=== PATIENT | female | born 2000 | race Caucasian/White ===

== ENCOUNTER 2022-04-03 21:23 | Emergency (ER) | payer OTHER ==
[2022-04-03 21:35] VITALS: BP 126/71
[2022-04-03] MEDS ORDERED: ONDANSETRON ODT 4 MG Prepack 2 TL PRN (21:57)
--- NOTE | 2022-04-03 22:00 | ED Physician Documentation ---
History of Present Illness - Stated complaint Stated Complaint: NAUSEA/HEADACHE - Chief complaint Chief Complaint: Abd Pain - Additonal information Additional information: Patient is 21-year-old female presenting to the emergency department with complaint of headache, nausea, vomiting, dizziness. Reports symptoms were ongoing for the last 5 days. Was seen yesterday at urgent care, reports at that time had negative urine screening, negative urine test, negative COVID and influenza tests. Was given Toradol and Zofran. Reports was feeling unwell until today when she was able to tolerate p.o. intake including Gatorade and so me solid food. States that she currently feels significantly better. Denies for any head trauma, fever, chills, chest pain, shortness of breath, cough, abdominal pain. Does report dizziness which she describes as a spinning sensation which is made worse by the position of her head or eyes. Reports that this symptom is also improved but not completely alleviated. Denies any tinnitus, or hearing loss or muffled hearing. Review of Systems Ten Systems: 10 systems reviewed and negative Constitutional: denies: Fever, Chills Eyes: denies: Loss of vision, Decreased vision Ears: denies: Loss of hearing, Ear pain, Tinnitus/ringing, Foreign body Nose: denies: Rhinorrhea / runny nose Throat: denies: Dental pain / toothache Cardiac: denies: Chest pain / pressure Respiratory: denies: Dyspnea GI: reports: Nausea, Vomiting. denies: Abdominal Pain : denies: Dysuria Skin: denies: Rash Musculoskeletal: denies: Neck pain Neurologic: reports: Other (Positive vertigo) PD PAST MEDICAL HISTORY - Present Medications Home Medications: Ambulatory Orders Medication Instructions Recorded Confirmed Meclizine [Antivert] 12.5 mg PO Q6H #30 tablet 04/03/22 Ondansetron Odt [Zofran] 4 mg TL Q6H PRN #10 tablet 04/03/22 - Allergies Allergies/Adverse Reactions: Allergies Allergy/AdvReac Type Severity Reaction Status Date / Time No Known Drug Allergies Allergy Verified 04/03/22 21:35 PD ED PE NORMAL - Vitals Vital signs reviewed: Yes - General General: Alert and oriented X 3, No acute distress, Well developed/nourished, Other - HEENT HEENT: Atraumatic, PERRL, EOMI, Ears normal, Moist mucous membranes, Pharynx benign, Dentition benign - Neck Neck: Supple, no meningeal sign, No bony TTP, No adenopathy - Cardiac Cardiac: RRR, No murmur, No gallop - Respiratory Respiratory: No respiratory distress, Clear bilaterally - Female Female : Deferred - Rectal Rectal: Deferred - Back Back: No CVA TTP - Derm Derm: Normal color - Neuro Neuro: Alert and oriented X 3, 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 There was also report of vertigo without tinnitus or hearing loss. Afebrile, hemodynamically stable on arrival to the emergency department. Reported that all of her symptoms are largely improved at this time. Did report that she had COVID, influenza screening as well as urine analysis and a negative test that were performed yesterday. At this time I will provide her with a short course of Zofran and meclizine. Encourage careful follow-up with primary care and or return to the emergency department for new or worsening symptoms. Final clinical impression, headache, nausea and vomiting, vertigo. Departure - Departure Disposition: 01 Home, Self Care Clinical Impression: Headache, Nausea and vomiting, Vertigo Instructions: ED Nausea Vomiting Prescriptions: Meclizine [Antivert] 12.5 mg PO Q6H #30 tablet Ondansetron Odt [Zofran] 4 mg TL Q6H PRN #10 tablet PRN Reason: Nausea / Vomiting Comments: Thank you for allowing us to care for you today at [facility]. [facility] in [place]. Please drink plenty fluids and get plenty of rest over the course of the next few days. If it anytime you have any new or worsening symptoms please not hesitate to return.
== END 2022-04-03 22:19 | disposition home or self-care (01) ==
LOC: ED 21:23
DX: R51.9 Headache, unspecified (principal); R42 Dizziness and giddiness; R11.2 Nausea with vomiting, unspecified
CPT/HCPCS: 99282; 99284